=== PATIENT | male | born 1940 | race Caucasian/White ===

== ENCOUNTER 2018-07-11 10:24 | Day surgery (SDC) | payer MEDICARE ==
[~2018-07-11] VITALS: Ht 185.4 cm; Wt 124.7 kg
--- NOTE | ~2018-07-11 | OP ---
PATIENT NAME: GABY JACOB MEDICAL RECORD: [id number] :41 LOCATION:D.OPS ADMISSION DATE: SURGEON: CARMEN STACY MD DATE OF OPERATION: 07/11/2018 PROCEDURE: Colonoscopy with polypectomy. HIGHBALLER: Carmen Stacy MD SCOPE: Olympus video colonoscope. MEDICATIONS GIVEN: None. The patient did not wish to have any anesthesia for this procedure and did very well during the procedure, tolerating everything without difficulty. Hemodynamically stable. REASON FOR THE PROCEDURE: Surveillance colonoscopy. 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 FINDINGS: Informed consent was given. The patient was made comfortable with his position in the bed. The colonoscope was advanced under direct visualization into the rectum, and from there, we proceeded to the cecum, where the ileocecal valve and the appendiceal orifice were identified. The prep was generally very good. On withdrawal of the scope, mucosa was carefully inspected. The cecum was normal i.e., the appendiceal orifice and the ileocecal valve. 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 Within the rectal vault, it was noted that the patient had a large scar where we removed the previous tubulovillous adenoma. There was possibility of slight amount of regrowth and a hot biopsy was obtained and sent to pathology for review. On retroflexion, no internal hemorrhoids were appreciated. A minimal amount of external hemorrhoids were seen. The rectal tone was very good. The scope was then completely withdrawn and the patient tolerated the procedure well. IMPRESSION: 1. Cecum identified with normal-appearing tissue. 2. Pandiverticulosis without diverticulitis. 3. Possible recurrence of a slight amount of polyp regrowth at the site of the tubulovillous adenomatous polyp, which was removed in the rectum in 2014. Hot biopsy forceps technique was used. 4. No internal hemorrhoids. 5. Minimal external hemorrhoids. PLAN: 1. High-fiber diet with plenty of fluid. The patient tells me he has some difficulty with expressing stool. We have asked him to increase his fluid and fiber, use Colace stool softener, and consider the use of glycerin suppository prior to defecation. 2. Probiotics. 3. Caution with nuts, seeds, and popcorn. He should maintain a diverticular diet. TRANSINT:[id number] Voice Confirmation ID: [id number] DOCUMENT ID: [id number] cc: Ruthie Gross APRN, [id number] OPERATIVE REPORT [id number] GABY JACOB BRENDA MD CC: LUZ MARIA WEATHERS MD and Ruthie Gross APRN [id number] DICTATION DATE: 07/11/18 1426 LANOLIN PLANT OPERATOR: 07/11/18 1506 [facility] [address] [place] [address]
[~2018-07-11 10:24] MED LIST: ALPHA-LIPOIC ACID PO; AMBIEN10 MG PO; AMOXICILLIN500 M1 PO; ASPIRIN325 MG PO; ASPIRIN81 MG PO; BRILINTA90 MG PO; BUMEX 1 MG TAB1 MG PO; BUMEX2 MG PO; CIALIS5 MG PO; CINNAMON500 MG PO; CO Q-10100 MG PO; CRESTOR5 MG PO; FISH OIL 1,0001 CA1 PO; FOLATE0.4 MG PO; FOLIC ACID1 MG PO; GLUCOPHAGE500 MG; GLUCOPHAGE500 MG PO; GLUCOSAMINE & C1 CAP; K-DUR20 MEQ PO; L-ARGININE500 MG PO; LASIX20 MG PO; LEVOTHROID200 MCG PO; LYRICA75 MG PO; METOPROLOL TAR100 MG PO; METOPROLOL TART50 MG; NIACIN100 MG PO; NIACIN500 MG PO; NORCO 10/325 TA1 TA1 PO; RANEXA1000 MG PO; RANEXA500 MG PO; SYNTHROID200 MC1 PO; TYLENOL 325 MG325 MG PO; VITAMIN B-121000 MCG PO; VITAMIN B-122500 MCG OR; VITAMIN B650 MG PO; VITAMIN C1000 MG PO; VITAMIN C250 MG PO; VITAMIN D2000 UNIT PO; VITAMIN D31000 UNIT PO
[2018-07-11 10:44] LABS: BASOPHILS 0.1 % (0-2); EOSINOPHILS 0.9 % (0-7); HEMATOCRIT 42.2 % (42.0-54.0); HEMOGLOBIN 15.2 g/dL (13.5-17.5); IMMATURE GRANULOCYTES 0.2 % (0-5); LYMPHOCYTES 32.5 % (15-50); MCH 32.7 pg (26.0-34.0); MCV 90.8 fL (80.0-100.0); MEAN PLATELET VOLUME 9.2 fL (7.4-10.4); MONOCYTES 7.3 % (2-11); PLATELET COUNT 153 10x3/uL (130-400); RBC 4.65 10x6/uL (4.20-6.10); RDW 12.6 % (11.5-14.5); WBC 8.5 10x3/uL (4.8-10.8)
[2018-07-11 11:09] LABS: ANION GAP 14.7 mmol/L (8-16); CALCIUM 9.5 mg/dL (8.5-10.1); CARBON DIOXIDE 26.5 mmol/L (21.0-32.0); CREATININE - SERUM 1.3 mg/dL (0.6-1.3); POTASSIUM - SERUM 4.2 mmol/L (3.5-5.1)
[2018-07-11] MEDS ORDERED: TRILEPTAL300 MG PO (12:03)
[2018-07-11] MEDS ORDERED: NORVASC10 MG PO (12:03)
[2018-07-11] MEDS ORDERED: NEURONTIN 400400 MG PO (12:04)
[2018-07-11 12:21] VITALS: BP 144/747; Ht 185.4 cm; Wt 124.7 kg
--- NOTE | 2018-07-11 16:13 | NUR ---
1512 IV DC'D. CATHETER INTACT. NO BLEEDING AT SITE. BANDAID APPLIED
== END 2018-07-11 15:22 | disposition home or self-care (01) ==
LOC: D.OPS 10:24
PROVIDERS: Anesthesiology; ATTEND Internal Medicine Gastroenterology
DX: Z12.11 Encounter for screening for malignant neoplasm of colon (principal); K57.30 Diverticulosis of large intestine without perforation or abscess without bleeding; K64.4 Residual hemorrhoidal skin tags; Z86.010 Personal history of colon polyps; Z01.812 Encounter for preprocedural laboratory examination

== ENCOUNTER 2019-05-08 12:08 | Day surgery (SDC) | payer MEDICARE ==
[2019-05-07 15:30] LABS: HEMATOCRIT 48.5 % (42.0-54.0); HEMOGLOBIN 17.3 g/dL (13.5-17.5); MCH 33.3 pg (26.0-34.0); MCHC 35.7 g/dL (31.0-37.0); MCV 93.4 fL (80.0-100.0); MEAN PLATELET VOLUME 9.2 fL (7.4-10.4); RBC 5.19 10x6/uL (4.20-6.10); RDW 12.7 % (11.5-14.5); WBC 12.1 10x3/uL (4.8-10.8)
[2019-05-07 15:46] LABS: ANION GAP 12.1 mmol/L (8-16); CALCIUM 9.8 mg/dL (8.5-10.1); CARBON DIOXIDE 29.1 mmol/L (21.0-32.0); CREATININE - SERUM 1.5 mg/dL (0.6-1.3); POTASSIUM - SERUM 4.2 mmol/L (3.5-5.1)
[~2019-05-08] VITALS: Ht 185.4 cm; Wt 127.5 kg
[~2019-05-08 12:08] MED LIST changes: +FUROSEMIDE20 MG PO; +HYDROCODON-ACE1 EA10 PO; -LASIX20 MG PO; -METOPROLOL TART50 MG; +METOPROLOL TART50 MG PO; +NEURONTIN 400400 MG PO; +NORVASC10 MG PO; +PAMELOR 25 MG C25 MG PO; +SYNTHROID175 MCG PO; -SYNTHROID200 MC1 PO; +TRILEPTAL300 MG PO; +ULTRAM50 MG PO
[2019-05-08] MEDS ORDERED: FISH OIL 1,0001 CA1 PO (13:26)
[2019-05-08 13:29] VITALS: BP 161/68; Ht 185.4 cm; Wt 127.5 kg
--- NOTE | 2019-05-08 19:00 | NUR ---
THIS NURSE ASSUMES CARE OF PATIENT FROM LILLY HODGES RN. PATIENT SITTING ON SIDE OF BED, PATIENT EXHIBITS THAT HE CAN STAND UP AND STATES HAS FEELING IN FEET AND LEGS "THE SAME THAT I NORMALLY DO. I DON'T FEEL MY FEET WELL BECAUSE OF NEUROPATHY. I FEEL THE PRESSURE OF STANDING ON THEM LIKE I ALWAYS DO." PATIENT IS CALLING A TRANSPORTATION STAFFER FROM [facility]
--- NOTE | 2019-05-08 19:40 | NUR ---
PATIENT AMBULATES IN HALLWAY WITH CANE, STATES ALL NUMBNESS IS GONE. DISCHARGED VIA WHEELCHAIR TO [facility] WITH [facility] STAFF
--- NOTE | 2019-05-09 09:16 | OP ---
PATIENT NAME: GABY JACOB MEDICAL RECORD: [id number] :41 LOCATION:D.OPS ADMISSION DATE: SURGEON: CYRIL MESA MD DATE OF OPERATION: 05/08/2019 SURGEON: Cyril Mesa MD. ANESTHESIA: Spinal anesthesia by Augie Goel CRNA. 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 FINDINGS: Obstructive lateral lobes of the prostate. Previous TURP at the bladder neck. Single ureteral orifices bilaterally with no bladder tumors. PROCEDURE: UroLift times 4. BLOOD LOSS: None. CLINICAL HISTORY: This is a 78-year-old male, who had UroLift times 2 implants placed in [place] in 2016. At the same time, he had an inflatable penile prosthesis inserted. The UroLift never really properly functioned for him with only 2 implants being placed. In June 2018, he had a bipolar TURP by Dr. Killian. Even then, he feels that the flow is still slow and not improved after the TURP. He had cystoscopy on 04/29/2019. He had obstructive lateral lobes. The TURP seemed to have been limited to the bladder neck. His IPSS scores are quite high even after TURP. He wanted to have a repeat UroLift procedure done to open up the prostate. He does not trust urologist after his negative experiences with the urologist in [place] and with Dr. Killian. He wants to be fully awake during his procedure in order to observe the proceedings. Therefore, he requested to have a spinal anesthetic. HE IS ALLERGIC TO LISINOPRIL, BIAXIN, LYRICA, VERSED, HYDROMORPHONE AND PLAVIX. He was given Levaquin IV application tester to the OR. DESCRIPTION OF PROCEDURE: The patient was given spinal anesthetic. He was then placed into lithotomy position and prepped and draped. The penile implant was in full erection mode. I had to deflate the device using the activation button. Then, we could introduce the cystoscope. No penile or urethral strictures were seen. The findings are as outlined above. The screen was angled so that I could see what was on the screen and the patient could simultaneously see what was also on the same screen. Then, 1.5 cm from the bladder neck at the anterolateral sulcus, I placed 1 UroLift unit implant on each side. Then, at the level of the verumontanum at the anterolateral sulcus, I placed 1 UroLift unit at each side. The patient observed the entire procedure being done. At the end of the procedure, he had a very wide open prostatic urethra. I would normally have left him without a Bello catheter. However, because the spinal anesthetic will last for quite a few hours, I decided to place a Bello catheter. This was put to bag drainage. I will see the patient in followup next week to remove the Bello catheter. TRANSINT:[id number] Voice Confirmation ID: [id number] DOCUMENT ID: [id number] OPERATIVE REPORT [id number] GABY JACOB ROBERT S MD at 0916 CC: [id number] DICTATION DATE: 05/08/19 1535 ASSISTANT EXECUTIVE HOUSEKEEPER: 05/08/19 2312 [facility] 05/08/[address] [address]
== END 2019-05-08 19:40 | disposition home or self-care (01) ==
LOC: D.OPS 12:08 → D.PAN 14:30 → D.OPS 14:30
PROVIDERS: Anesthesiology; ATTEND Urology
DX: N40.1 Benign prostatic hyperplasia with lower urinary tract symptoms (principal); I25.10 Atherosclerotic heart disease of native coronary artery without angina pectoris; E78.5 Hyperlipidemia, unspecified; I10 Essential (primary) hypertension; K64.9 Unspecified hemorrhoids